=== PATIENT | female | born 1935 ===

== ENCOUNTER → 2016-07-06 | Outpatient (CLI) | payer MEDICARE, BC ==
[~2016-07-06] MED LIST: ALIGN4 MG PO; ASPIRIN325 MG PO; AVAPRO300 MG PO; CALCIUM 600 +1 EA12 PO; FISH OIL 1,2001 EAC1 PO; HUMIBID LA (MU600 MG PO; HYDRODIURIL25 MG PO; LEVOTHROID (S112 MCG PO; LIPITOR40 MG PO; MULTI VITAMIN1 EACH PO; NITROSTAT0.4 MG SL; PREVACID30 MG PO; SYSTANE 0.3-0.440 ML OPHTH; VITAMIN C1000 MG PO
--- NOTE | ~2016-07-06 | ESTC ---
Cardiac Perfusion Imaging Demographics Patient Name MELCHOR Clark Gender Female Patient Number [id number] Race Visit Number [id number] [place] [id number] Room Number Accession Number [id number] Height Date of 1935 Weight Age 80 year(s) BSA Referring Lo Wang MD BMI Physician Interpreting Lo Wang MD Date of study 07/06/2016 Physician Supervising /ANDRÉS Hernandez Technologist Ordering Physician Lo Wang MD Stress [facility] library circulation technician RDCS, RVT Stress ECG Reading Nazario Keith RN Physician Brock Vogt RN Procedure Procedure Type: Nuclear Stress Test:Pharmacological, Lexiscan, Cardiolite Stress Test Procedure Start time: 07/06/2016 08:00 Indications: Chest pain and History of CAD. Risk Factors The patient risk factors include:prior PCI on 04/19/2004;obesity, treated hypercholesterolemia, treated hypertension, family history of premature CAD and dyslipidemia. Conclusions Summary Cardiolite SPECT images demonstrates homogenous uptake of radioactive tracer. NO evidence of inducible reversible defect and no evidence of underlying fixed defect. Normal TID ratio Gated images demonstrate normal left ventricular systolic function without evidence of inducible wall motion abnormalities. LVEF is 63% Stress Protocols Resting ECG RSR with LBBB Resting HR:74 bpm Resting BP:199/77 mmHg Pre-stress physical exam: Findings on the pre-stress exam revealed: complaints of shortness of breath and intermittent chest discomfort.. Stress Protocol:Pharmacologic Peak HR:83 bpm HR response: Appropriate Peak BP:199/77 mmHg BP response: Appropriate Predicted HR: 138 bpm HR/BP product:02239 % of predicted HR: 60 Reason for termination:Infusion complete ECG Findings Indeterminate ECG due to baseline abnormalities. Arrhythmias No rhythm abnormality. Symptoms Shortness of breath. Stress Interpretation Appropriate hemodynamic response to Lexiscan. No significant ST-T wave changes with Lexiscan. ECG portion is negative for ischemia by diagnostic criteria. Stress supervision and interpretation provided by Deja Lange APRN . Imaging Results Applied corrections - Motion correction applied High risk findings Summed scores - Summed stress score: 13 - Summed rest score: 4 - Summed difference score: 9 Stress ejection Ejection fraction:63 % EDV :108 ml ESV :40 ml Stroke volume :68 ml LV mass :144 gr Imaging Protocols Rest Stress Isotope:Tc99m Sestamibi IV Isotope: Tc99m Sestamibi IV Isotope dose:13.4 mCi Date:07/06/2016 08:49 Date:07/06/2016 07:23 Technique: SPECT Technique: Gated Supine SPECT Supine Scan Time:45-60 minutes post Scan Time:45-60 minutes post injection injection Procedure Medications - Regadenoson (Lexiscan) 0.4 mg IV over 10-15 sec. I.V. 0.4 mg. Medical History Admission Medications + +------+ + + +---------+ !Name !Dosage!Times per day !Start date !Stop date !Details ! + +------+ + + +---------+ !Aspirin (any) ! ! ! ! ! ! + +------+ + + +---------+ !Statin (any) ! ! ! ! ! ! + +------+ + + +---------+ Admission Data Admission date: 07/06/2016 Admission Time: 07:03 Hospital Status: Outpatient. Signatures dtt: Felipe Blanchard (cardio) dtd: 07/06/16 0800 Physician Self Edit
== END | disposition disaster alternative care site (69) ==
LOC: GRAD 07:03
DX: I25.10 Atherosclerotic heart disease of native coronary artery without angina pectoris (principal); E66.9 Obesity, unspecified; E78.00 Pure hypercholesterolemia, unspecified; E78.5 Hyperlipidemia, unspecified; I10 Essential (primary) hypertension; R07.9 Chest pain, unspecified; R06.02 Shortness of breath; Z82.49 Family history of ischemic heart disease and other diseases of the circulatory system
CPT/HCPCS: A9500; J2785

== ENCOUNTER → 2016-08-25 | Outpatient (CLI) | payer MEDICARE, BC ==
[2016-08-25 09:34] LABS: BASOPHIL % 0.6 %; BILIRUBIN URINE NEGATIVE (NEGATIVE); BLOOD URINE NEGATIVE /UL (NEGATIVE); COLOR URINE YELLOW (YELLOW); EOSINOPHIL # 0.1 K/uL (0.0-0.5); EOSINOPHIL % 1.9 %; GLUCOSE URINE NEGATIVE (NEGATIVE); HEMATOCRIT 38.1 % (30.0-46.0); HEMOGLOBIN 12.6 g/dL (10.0-15.0); IMMATURE GRANULOCYTE % 0.2 %; KETONE URINE NEGATIVE (NEGATIVE); LEUKOCYTES URINE 25 /UL (NEGATIVE); LYMPHOCYTE # 1.4 K/uL (0.8-4.0); LYMPHOCYTE % 26.1 %; MCH 29.2 pg (27.0-34.0); MCHC 33.1 gm/dL (32.0-36.5); MCV 88.2 fl (83.0-98.0); MONOCYTE # 0.4 K/uL (0.0-1.0); MONOCYTE % 6.9 %; MPV 9.6 fl (9.4-12.4); NEUTROPHIL # (ANC) 3.4 K/uL (1.8-7.8); NEUTROPHIL % 64.3 %; NITRITE URINE NEGATIVE (NEGATIVE); NRBC % 0 /100WBC (0-0.00); PH URINE 6.5 (4.0-8.0); PLATELET COUNT 396 K/uL (150-450); PROTEIN URINE NEGATIVE (NEGATIVE); RBC 4.32 M/uL (3.00-5.00); RDW-CV 13.2 % (11.9-14.6); TURBIDITY URINE CLEAR (CLEAR); UROBILINOGEN URINE NORMAL (NORMAL); WBC 5.3 K/uL (4.0-11.0)
[2016-08-25 09:40] LABS: BACTERIA URINE NEGATIVE (NEGATIVE); RBC URINE NEGATIVE #/HPF (NEGATIVE)
== END ==
LOC: LCNC 09:27
PROVIDERS: Internal Medicine Interventional Cardiology
DX: I49.5 Sick sinus syndrome (principal); R53.83 Other fatigue

== ENCOUNTER 2016-08-27 06:48 | Outpatient (CLI) | payer MEDICARE, BC ==
[~2016-08-27] VITALS: Ht 162.6 cm; Wt 90.6 kg
--- NOTE | ~2016-08-27 | OR ---
PATIENT'S NAME: SOPHIA ROCHE [facility] AGE: 81 Y [address] ROOM: [place] [address] LOCATION: GPCU ADMIT DATE: 08/27/2016 OR/Procedure Report DISCHARGE DATE: 08/28/2016 FAMILY PHYSICIAN: Jayla Ellis MD ATTENDING PHYSICIAN: Hoda Blanchard SURGEON: Hoda Blanchard MD MEETING MANAGER: DATE OF PROCEDURE: 08/27/2016 PROCEDURE: Dual chamber pacemaker implantation INDICATION: Advanced 2nd degree heart block PROCEDURE/FINDINGS: The patient was brought to cardiac labor relations manager in the fasting state and prepped and draped in the normal manner. 1% lidocaine was used for local skin analgesia in the left infraclavicular region. An 18 gauge Cook needle was advanced into the left subclavian vein. 0.025 wire was placed. Needle was removed. Proximal end of the wire was attached to the surgical gown with a hemostat. Next, a second access point was obtained also with the 18 gauge Cook needle. 0.025 wire was placed. Needle was removed. Proximal end of the wire was attached to the surgical gown with a hemostat. Attention was then turned towards creation of the pacemaker pocket. Additional 1% lidocaine was given. Next, a #11 blade was used for primary skin incision. Following this, Bovie cautery as well as blunt dissection was used to identify the pectoralis fascia. This was entered into, dissected both cephalad as well as caudally. The previously placed 0.025 wires were brought through the skin into the pacemaker pocket. The first wire had a 7F sheath placed onto it. Wire and dilator were removed. Using fluoroscopic guidance, the right ventricular lead was placed. This is a [employer], model #7741, serial #[id number]. Thresholds were obtained showing a sensing R wave of 4 mV, threshold 0.6 volts at 0.4 milliseconds pulse width. Impedance 610 ohms. Next, the shoulder sleeve was sewn into the pectoralis muscle using two interrupted sutures of zero silk. Following this the second 0.025 wire had a 7F sheath placed, the 0.025 wire and dilator were removed. Using fluoroscopic guidance, the right atrial lead was placed. This is a [employer], model #7740, serial #[id number]. Thresholds were obtained showing a sensing P wave of 1.3 mV, threshold 0.5 volts at 0.4 milliseconds pulse width, impedance of 643 ohms. Following this the shoulder sleeve was sewn to the pectoralis muscle using two interrupted sutures of zero silk. The leads were then connected to the pacemaker generator which is also a [employer], model number L111, serial #[id number]. Next, the pacemaker generator with connected leads were then placed into the pacemaker pocket. Overlying subcutaneous tissue was closed with 2-0 Vicryl in a running fashion. Next, the subcuticular layer was closed with 4.0 Vicryl also in a running fashion. PATIENT'S NAME: SOPHIA ROCHE [facility] AGE: 81 Y [address] ROOM: [place] [address] LOCATION: GPCU ADMIT DATE: 08/27/2016 OR/Procedure Report DISCHARGE DATE: 08/28/2016 FAMILY PHYSICIAN: Jayla Ellis MD ATTENDING PHYSICIAN: Hoda Blanchard Steri-strips were applied as well as a pressure dressing and Tegaderm. The patient was then placed into a shoulder immobilizer. CONCLUSION: 1. Dual chamber pacemaker implantation for advanced 2nd degree heart block. 2. Patient is instructed not to use the left arm for one week. 3. Patient will be instructed on the use of the home remote monitoring Apex system. 4. Chest x-ray is pending at the time of this dictation. 5. HODA BLANCHARD MD DJM/gb /[id number] CC: Printer CARDIOPULMINARY d: 09/04/16 0924 t: 09/17/16 1124, OPERATIVE SUMMARY
[~2016-08-27 06:48] MED LIST changes: -HYDRODIURIL25 MG PO
--- NOTE | 2016-08-27 18:19 | NUR ---
Significant Event: PACER PLACED TO LEFT SUBCLAVIAN SITE WITH DRESSING C/D/I PER DR LOZA. IMMOBILIZER SECURED TO LEFT ARM FOR 7 DAYS. A/O X3. INITIAL BP 181/78 THEN DOWN TO 130-160'S. THIS AFTERNOON AROUND 1500, SBP 180-190'S. VALSARTAN GIVEN AND BP RE-CHECK CONTINUES TO SHOW SBP 190'S. DR LOZA NOTIFIED AND 2.5MG NORVASC GIVEN X1 WITH NO CHANGE. NOTIFIED SECOND TIME WITH ORDER TO GIVE ADD'L 2.5MG NORVASC AND IF SBP >170 IN 1 HOUR GIVE 0.1MG CLONIDINE. ON RA. NO C/O PAIN. REFUSES ICE PACK TO PACER SITE. Follow up: BP MANAGEMENT. HOME TOMORROW?
--- NOTE | 2016-08-28 04:59 | NUR ---
Significant Event:PACED RHYTHM. SBP 130-160S. C/O SORENESS TO L PPM SITE, REFUSED PAIN MEDS. RA. UP TO BATHROOM SBA. LUE IMMOBILIZER IN PLACE, VERBALIZES PRECAUTIONS. Follow up: POSSIBLE DISMISSAL 08/28, REINFORCE PRECAUTIONS
[2016-08-28] MEDS ORDERED: HYDRODIURIL25 MG PO (11:32)
--- NOTE | 2016-08-28 13:12 | NUR ---
DISMISSED TO HOME. GAUZE FLUFF TAKEN OFF, LEFT TRANSPARENT AND STERI-STRIPS, PER DR. NAJERA ORDERS. EDUCATED ON PACEMAKER CARE, IMMOBILIZER X 7 DAYS, LIFTING RESTRICTIONS. NEW MEDICATIONS DISCUSSED, PRESCRIPTIONS GIVEN TO PATIENT. FOLLOW-UP APPOINTMENTS DISCUSSED. PATIENT TRANSPORTED TO PRIVATE AUTO VIA WHEEL CHAIR, ACCOMPANIED BY COMMUNITY SERVICE DIRECTOR. VSS.
== END 2016-08-28 12:45 | disposition disaster alternative care site (69) ==
LOC: GCAT 06:48 → GPCU 06:48 → GPOC 07:00 → GPCU 08:55 → GCAT 08-28 12:45
PROC: 0JH606Z Insertion of Pacemaker, Dual Chamber into Chest Subcutaneous Tissue and Fascia, Open Approach (ICD-10-PCS; principal; 2016-08-27)
PROC: 0JH606Z Insertion of Pacemaker, Dual Chamber into Chest Subcutaneous Tissue and Fascia, Open Approach (ICD-10-PCS; 2016-08-27)
PROC: 02H63JZ Insertion of Pacemaker Lead into Right Atrium, Percutaneous Approach (ICD-10-PCS; 2016-08-27)
PROC: 02HK3JZ Insertion of Pacemaker Lead into Right Ventricle, Percutaneous Approach (ICD-10-PCS; 2016-08-27)
DX: I44.1 Atrioventricular block, second degree (principal); I25.10 Atherosclerotic heart disease of native coronary artery without angina pectoris; I10 Essential (primary) hypertension; E78.00 Pure hypercholesterolemia, unspecified; E03.9 Hypothyroidism, unspecified; E66.9 Obesity, unspecified; R00.2 Palpitations; Z88.0 Allergy status to penicillin; Z88.2 Allergy status to sulfonamides; Z88.1 Allergy status to other antibiotic agents; Z88.6 Allergy status to analgesic agent; Z68.33 Body mass index [BMI] 33.0-33.9, adult; Z90.49 Acquired absence of other specified parts of digestive tract; Z98.890 Other specified postprocedural states
CPT/HCPCS: C1785; C1898; J2250; J3010; J3370; J7030

== ENCOUNTER → 2016-09-01 | Outpatient (CLI) | payer MEDICARE, BC ==
[~2016-09-01] MED LIST changes: +HYDRODIURIL25 MG PO
== END | disposition disaster alternative care site (69) ==
LOC: GRAD 13:00
DX: Z48.812 Encounter for surgical aftercare following surgery on the circulatory system (principal); Z95.0 Presence of cardiac pacemaker

== ENCOUNTER → 2016-09-28 | Outpatient (CLI) | payer MEDICARE, BC | END | disposition disaster alternative care site (69) | LOC: LCNC 08:55 | DX: E03.9 Hypothyroidism, unspecified (principal) ==